=== PATIENT | male | born 1970 | race Caucasian/White ===

== ENCOUNTER 2022-04-25 20:03 | Outpatient (CLI) | payer BC, SELFPAY ==
[2022-04-25 14:18] LABS: Chloride* 99 mmol/L (96-114)
[2022-04-25 14:19] LABS: Potassium* 4.4 mmol/L (3.6-5.1); Sodium* 137 mmol/L (135-149)
[2022-04-25 14:21] LABS: Cholesterol* 161 mg/dL (90-199)
[2022-04-25 14:22] LABS: Alanine Aminotransferase* 27 U/L (4-50); Blood Urea Nitrogen* 20 mg/dL (7-30); Carbon Dioxide* 27 mmol/L (20-32); Creatinine* 0.7 mg/dL (0.5-1.5); Estimated Glomerular Filt Rate 110 ml/min; Glucose* 206 mg/dL (60-115)
[2022-04-25 14:23] LABS: Calcium* 9.4 mg/dL (8.4-10.6); HDL Cholesterol* 37 mg/dL (>=40); LDL Cholesterol Calculated 31 mg/dL (<100)
[2022-04-25 14:26] LABS: Triglycerides* 464 mg/dL (40-149)
[2022-04-25 14:52] LABS: PSA Screen* 0.33 ng/mL (0.10-4.00)
== END 2022-04-25 20:04 | disposition home or self-care (01) ==
PROVIDERS: PCP Family Medicine; Visit Provider Family Medicine
DX: E11.9 Type 2 diabetes mellitus without complications (principal); E78.5 Hyperlipidemia, unspecified; Z12.5 Encounter for screening for malignant neoplasm of prostate
CPT/HCPCS: 80048; 80061; 84153; 84460